=== PATIENT | female | born 1950 | race Caucasian/White ===

== ENCOUNTER 2024-05-27 10:04 | Outpatient (CLI) | payer OTHER | END 2024-05-27 10:05 | disposition home or self-care (01) | LOC: NAV RAD 10:04 | PROVIDERS: ATTEND Family Medicine | DX: M41.25 Other idiopathic scoliosis, thoracolumbar region (principal) | CPT/HCPCS: 72081 ==

== ENCOUNTER 2025-03-30 10:46 | Outpatient (CLI) | payer OTHER | END 2025-03-30 10:47 | disposition home or self-care (01) | LOC: NAV RAD 10:46 | PROVIDERS: ATTEND Family Medicine | DX: M16.12 Unilateral primary osteoarthritis, left hip (principal) ==